=== PATIENT | male | born 1950 | race Caucasian/White ===

== ENCOUNTER 2019-04-05 10:16 | Emergency (ER) | payer OTHER ==
[~2019-04-05] VITALS: Ht 172.7 cm; Wt 68.0 kg
[2019-04-05 10:42] VITALS: Ht 172.7 cm; Wt 68.0 kg
[2019-04-05 12:35] VITALS: BP 120/60
== END 2019-04-05 12:35 ==
LOC: ED 10:16
DX: K40.20 Bilateral inguinal hernia, without obstruction or gangrene, not specified as recurrent (principal); J44.9 Chronic obstructive pulmonary disease, unspecified; F17.210 Nicotine dependence, cigarettes, uncomplicated
CPT/HCPCS: 99406